=== PATIENT | female | born 1975 | race Caucasian/White ===

== ENCOUNTER 2021-05-22 21:32 | Emergency (ER) | payer MEDICARE ==
[2021-05-22 22:21] LABS: HEMOGLOBIN 13.5 gm/dl (12.3-15.3); RED BLOOD COUNT 4.62 M/UL (4.00-5.10); WHITE BLOOD COUNT 8.2 K/UL (4.5-11.0)
[2021-05-22 22:51] LABS: BUN/CREATININE RATIO 21 (0-10)
[2021-05-23] MEDS ORDERED: KEPPRA1000 MG PO (01:34)
== END 2021-05-23 02:10 | disposition home or self-care (01) ==
LOC: ER1 21:32
PROVIDERS: Family Medicine
DX: G40.909 Epilepsy, unspecified, not intractable, without status epilepticus (principal); F41.9 Anxiety disorder, unspecified; I10 Essential (primary) hypertension; F32.9 Major depressive disorder, single episode, unspecified; F13.20 Sedative, hypnotic or anxiolytic dependence, uncomplicated; E11.9 Type 2 diabetes mellitus without complications
CPT/HCPCS: 70450; 71045; 80053; 80307; 81001; 82550; 82553; 83874; 84484; 84703; 85025; 93005; 96374; 99285; J1953; Q0177